=== PATIENT | male | born 1985 | race American Indian/Alaskan Native ===

== ENCOUNTER 2018-02-01 20:33 | Emergency (ER) | payer MEDICAID ==
[2018-02-01 20:35] VITALS: BMI 33.9
[2018-02-01 21:16] VITALS: RESP 18; TEMP 98.1
[2018-02-01] MEDS ORDERED: cefTRIAXone (Rocephin) 250 mg Inj IM STA (21:57)
--- NOTE | 2018-02-01 21:59 | ED PDOC ---
Arrival/HPI <Marco Marroquin - Last Filed: 02/02/18 00:36> - General Historian: Patient - History of Present Illness Narrative History of Present Illness (Text): 02/01/18 22:41 32yr old male presents today with concerns for STD. pt states his partner tested + for trichomonas. pt denies any urinary symptoms or discharge. pt denies testicular pain. no fever/chills. pt states he has hx of HTN but does not take any medications. pt denies cp or sob. no vomiting/diarrhea. no other complaints. <Char Albert - Last Filed: 02/02/18 01:15> - General Chief Complaint: Male Genitourinary Time Seen by Provider: 02/01/18 21:21 Past Medical History - Provider Review Nursing Documentation Reviewed: Yes - Travel History Have you recently traveled outside [place] w/in the past 3 mons?: No - Infectious Disease Hx of Infectious Diseases: None - Tetanus Immunization Tetanus Immunization: Unknown - Past Medical History Past Medical History: No Previous - Psychiatric Hx Depression: No Hx Emotional Abuse: No Hx Physical Abuse: No Hx Substance Use: Yes - Past Surgical History Past Surgical History: No Previous - Anesthesia Hx Anesthesia: No - Suicidal Assessment Feels Threatened In Home Enviroment: No <Char Albert - Last Filed: 02/02/18 01:15> Family/Social History - Physician Review Nursing Documentation Reviewed: Yes Family/Social History: Unknown Family HX Smoking Status: Current Some Days Smoker Hx Alcohol Use: No Hx Substance Use: Yes Substance used: weed daily Hx Substance Use Treatment: No <Char Albert - Last Filed: 02/02/18 01:15> Allergies/Home Meds <Marco Marroquin - Last Filed: 02/02/18 00:36> <Char Albert - Last Filed: 02/02/18 01:15> Allergies/Adverse Reactions: Allergies shellfish derived Allergy (Verified 02/01/18 21:19) RASH Review of Systems - Review of Systems Constitutional: absent: Fatigue, Fevers Respiratory: absent: SOB, Cough Cardiovascular: absent: Chest Pain, Palpitations Gastrointestinal: absent: Abdominal Pain, Nausea, Vomiting Genitourinary Male: absent: Dysuria, Frequency, Hematuria, Urinary Output Changes Musculoskeletal: absent: Arthralgias, Back Pain, Neck Pain Skin: absent: Rash, Pruritis Neurological: absent: Headache, Dizziness Psychiatric: absent: Anxiety, Depression <Char Albert - Last Filed: 02/02/18 01:15> Physical Exam Vital Signs Temp Pulse Resp BP Pulse Ox 02/02/18 00:21 65 18 160/106 H 100 02/01/18 23:17 80 170/125 H 02/01/18 22:33 71 18 182/118 H 99 02/01/18 21:16 98.1 F 80 18 98 <Marco Marroquin - Last Filed: 02/02/18 00:36> Vital Signs Reviewed: Yes Vital Signs Temp Pulse Resp Pulse Ox 02/01/18 21:16 98.1 F 80 18 98 Temperature: Afebrile Blood Pressure: Hypertensive Pulse: Regular Respiratory Rate: Normal Appearance: Positive for: Well-Appearing, Non-Toxic, Comfortable Pain Distress: None Mental Status: Positive for: Alert and Oriented X 3 - Systems Exam Head: Present: Atraumatic Mouth: Present: Moist Mucous Membranes Neck: Present: Normal Range of Motion Respiratory/Chest: Present: Clear to Auscultation, Good Air Exchange. No: Respiratory Distress, Accessory Muscle Use Cardiovascular: Present: Regular Rate and Rhythm, Normal S1, S2. No: Murmurs Abdomen: No: Tenderness, Rebound, Guarding Genitourinary Male: Present: Normal External Genitalia, Circumcised Penis, Other (chaparoned by rehana Rodrigues). No: Lesions, Penile Discharge, Testicle Tenderness, Penile Swelling, Masses, Erythema, Testicle Swelling Back: Present: Normal Inspection Upper Extremity: Present: Normal ROM Lower Extremity: Present: Normal ROM Neurological: Present: GCS=15 Skin: Present: Warm, Dry, Normal Color. No: Rashes Psychiatric: Present: Alert, Oriented x 3 <Char Albert - Last Filed: 02/02/18 01:15> Medical Decision Making - Lab Interpretations Lab Results: 02/01/18 23:36 02/01/18 23:36 Lab Results 02/01/18 23:36: WBC 7.8, RBC 5.10, Hgb 12.9 L, Hct 40.1 L, MCV 78.6 L, MCH 25.3, MCHC 32.2, RDW 15.5 H, Plt Count 234, MPV 11.6 H, Gran % 52.1, Lymph % (Auto) 38.5 H, [place] % (Auto) 7.2 H, Eos % (Auto) 1.8, Baso % (Auto) 0.4, Gran # 4.05, Lymph # (Auto) 3.0, [place] # (Auto) 0.6, Eos # (Auto) 0.1, Baso # (Auto) 0.03 02/01/18 23:36: Sodium 143, Potassium Pending, Chloride Pending, Carbon Dioxide Pending, Anion Gap Pending, BUN Pending, Creatinine Pending, Est GFR ( Amer) Pending, Est GFR (Non-Af Amer) Pending, Random Glucose Pending, Calcium Pending, Total Bilirubin Pending, AST Pending, ALT Pending, Alkaline Phosphatase Pending, Total Protein Pending, Albumin Pending, Globulin Pending, Albumin/Globulin Ratio Pending - RAD Interpretation Radiology Orders: 02/01/18 22:58 CHEST PORTABLE [RAD] Stat - Medication Orders Current Medication Orders: Discontinued Medications Azithromycin (Zithromax) 1,000 mg PO STAT STA; Protocol Stop: 02/01/18 21:58 Last Admin: 02/01/18 22:36 Dose: 1,000 mg Ceftriaxone Sodium (Rocephin) 250 mg IM STAT STA; Protocol Stop: 02/01/18 21:58 Last Admin: 02/01/18 22:52 Dose: 250 mg IM Administration Charges Document 02/01/18 22:52 (Rec: 02/01/18 22:52 [id number]) Injection Site MAR Injection Site Left Deltoid Charges for Administration # of IM Administrations 1 Clonidine HCl (Catapres) 0.1 mg PO STAT STA Stop: 02/01/18 22:59 Last Admin: 02/01/18 23:17 Dose: 0.1 mg MAR Pulse and Blood Pressure Document 02/01/18 23:17 RG (Rec: 02/01/18 23:18 RG [id number]) Pulse Pulse Rate (60-90 beats/min) 80 Blood Pressure Blood Pressure (100/60-150/90 mm Hg) 170/125 Metronidazole (Flagyl) 2,000 mg PO STAT STA; Protocol Stop: 02/01/18 21:58 Last Admin: 02/01/18 22:36 Dose: 2,000 mg <Marco Marroquin - Last Filed: 02/02/18 00:36> ED Course and Treatment: 02/02/18 01:12 32yr old male presents today for STD treatment. partner tested + for trichomonas. Patient is nontoxic well-appearing in no distress. Ceftriaxone 250 mg IM Zithromax 1 g p.o. given flagyl 2g Po Gonorrhea and Chlamydia cultures are pending. pt was found to have elevated bp; pt with hx of HTN, does not take any medications. cbc; wnl cmp; wnl ekg; sinus bradycardia at 59b/m patient given 0.1mg of clonidine in er; BP improved to 160/106. pt in no distress. no cp, sob, headache, dizziness, weakness. pt was advised to f/u with pmd and building serviceman. will d/c home with norvasc 5mg. Advised patient to refrain from sex for 10 days followup with the primary care physician within the next 2 days or return if symptoms worsen persist or if new symptoms develop. all aspects of this case were discussed the attending of record. Impression: STD exposure, hypertension Follow up with PMD within the next 2 days Follow up with the building serviceman within the next 2 days. Take norvasc daily for elevated Blood pressure. return if symptoms worsen,persist or if new symptoms develop. <Char Albert - Last Filed: 02/02/18 01:15> - PA / HEALTH [employer]ION OFFICER / Resident Statement / has reviewed & agrees with the documentation as recorded. <Marco Marroquin - Last Filed: 02/02/18 00:36> Disposition/Present on Arrival <Marco Marroquin - Last Filed: 02/02/18 00:36> - Present on Arrival Any Indicators Present on Arrival: No History of DVT/PE: No History of Uncontrolled Diabetes: No Urinary Catheter: No History of Decub. Ulcer: No History Surgical Site Infection Following: None - Disposition Have Diagnosis and Disposition been Completed?: Yes Disposition Time: 21:58 Patient Plan: Discharge <Char Albert - Last Filed: 02/02/18 01:15> - Disposition Diagnosis: Exposure to STD, Hypertension Disposition: HOME/ ROUTINE Patient Problems: Current Active Problems Problem Status Onset Exposure to STD Acute Condition: GOOD Discharge Instructions (ExitCare): Sexually-Transmitted Diseases, High Blood Pressure in Adults Additional Instructions: Follow up with PMD within the next 2 days Follow up with the building serviceman within the next 2 days. Take norvasc daily for elevated Blood pressure. return if symptoms worsen,persist or if new symptoms develop. Prescriptions: amLODIPine [Norvasc] 5 mg PO DAILY #20 tab Referrals: [facility] [Outside] - Follow up with primary Natasha Queen MD [Medical Doctor] - Follow up with primary Juanpablo Figueredo MD [Staff Provider] - Follow up with primary Forms: [employer] (Micronesian), WORK NOTE
[2018-02-01 23:58] LABS: BASO # 0.03 K/mm3 (0.0-2.0); BASO % 0.4 % (0.0-3.0); EOS # 0.1 (0.0-0.7); EOS % 1.8 % (1.5-5.0); GRAN # 4.05 (1.4-6.5); GRAN % 52.1 % (50.0-68.0); HEMOGLOBIN 12.9 g/dL (14.0-18.0); LYMPH % 38.5 % (22.0-35.0); MEAN CELL VOLUME 78.6 fl (80.0-105.0); MEAN CORPUSCULAR HEMOGLOBIN 25.3 pg (25.0-35.0); MEAN CORPUSCULAR HGB CONC 32.2 g/dl (31.0-37.0); MEAN PLATELET VOLUME 11.6 fl (7.0-11.0); MONO # 0.6 (0.1-0.6); MONO % 7.2 % (1.0-6.0); RBC 5.1 10^6/uL (3.5-6.1); RED CELL DISTRIBUTION WIDTH 15.5 % (11.5-14.5); WHITE BLOOD COUNT 7.8 10^3/ul (4.5-11.0)
[2018-02-02 00:22] VITALS: BP 160/106; PULSE 65; O2SAT 100
[2018-02-02 00:36] LABS: ALB/GLOB RATIO 1.2 (1.1-1.8); ALBUMIN 4.6 g/dL (3.0-4.8); ALT/SGPT 29 U/L (7-56); AST/SGOT 36 U/L (17-59); BLOOD UREA NITROGEN 13 mg/dL (7-21); GFR NON-AFRICAN AMERICAN > 60
[2018-02-02 01:16] LABS: URINE BILIRUBIN NEGATIVE (NEGATIVE); URINE BLOOD SMALL (NEGATIVE); URINE GLUCOSE (UA) NEGATIVE (NEGATIVE); URINE LEUKOCYTE ESTERASE SMALL Leu/uL (NEGATIVE); URINE PROTEIN NEGATIVE mg/dL (<30 mg/dL); URINE UROBILINOGEN 0.2 E.U./dL (<1 E.U./dL)
[2018-02-02 01:17] LABS: URINE APPEARANCE CLEAR (CLEAR); URINE COLOR YELLOW (YELLOW)
[2018-02-02 01:52] LABS: URINE BACTERIA RARE (NEG); URINE RBC 0 - 2 /hpf (0-2)
--- NOTE | 2018-02-02 10:11 | RAD ---
Date of service: 02/01/2018 HISTORY: hypertension COMPARISON: No prior. FINDINGS: LUNGS: No active pulmonary disease. PLEURA: No significant pleural effusion identified, no pneumothorax apparent. CARDIOVASCULAR: No aortic atherosclerotic calcification present OSSEOUS STRUCTURES: No significant abnormalities. VISUALIZED UPPER ABDOMEN: Normal. OTHER FINDINGS: None. IMPRESSION: No acute cardiopulmonary disease appreciated.
--- NOTE | 2018-02-02 10:24 | CARD ---
APPROVED REPORT Date of service: 02/02/2018 EKG Measurement Heart [id number] <Conclusion> Sinus bradycardia Borderline 1st degree AVB LVH by voltage
== END 2018-02-02 01:15 | disposition home or self-care (01) ==
LOC: ED 20:33
DX: Z20.2 Contact with and (suspected) exposure to infections with a predominantly sexual mode of transmission (principal); I10 Essential (primary) hypertension
CPT/HCPCS: 71045; 80053; 81001; 85025; 87086; 87491; 87591; 93005; 96372; 99284; J0696